=== PATIENT | female | born 1985 | race Caucasian/White ===

== ENCOUNTER 2017-02-02 12:01 | Emergency (ER) | payer BC, MEDICAID ==
[~2017-02-02] VITALS: Ht 157.5 cm; Wt 107.8 kg
[~2017-02-02 12:01] MED LIST: CALNTAB; PERC5TAB12 PO; PRENCAP10 PO
[2017-02-02 12:24] VITALS: BP 138/83; PULSE 97; RESP 16; TEMP 98.5; O2SAT 99
[2017-02-02] MEDS ORDERED: FERR325T18 PO (14:19)
--- NOTE | 2017-02-02 14:35 | PD ---
HPI Chief Complaint: GI Complaint Time Seen by Provider: 14:25 Travel History International Travel<30 days: No Contact w/Intl Traveler<30days: No Traveled to known affect area: No History of Present Illness HPI 31yo F with no significant PMH presents to the ED with c/o left lower back pain for 2 days. Pain is sharp, worst with movement and nonradiating. Also with nausea and NBNB vomiting. Denies any fever, IVDA, chest pain, sob, abdominal pain, focal weakness or numbness, trauma, fall, dysuria, hematuria, vaginal bleeding or discharge. LMP 12/25/16 and said her menstrual period is irregular. She check and her thinks he saw a faint line but she didnt. PFSH Past Medical History Asthma: Yes Anxiety: Yes Diminished Hearing: No Respiratory: Yes (ASTHMA CHILD) Immunizations Current: No ?: Unknown LMP: 12/25/16 Past Surgical History Surgical History: No Previous Surgery Social History Alcohol Use: No Tobacco Use: No Substance Use: No Allergies-Medications (Allergen,Severity, Reaction): Coded Allergies: No Known Allergies (Unverified Adverse Reaction, Unknown, 02/02/17) Reported Meds & Prescriptions Reported Meds & Active Scripts Active Reported Ferrous Sulfate 325 Mg (65 Mg Iron) Tablet 325 Mg PO DAILY Review of Systems Except as stated in HPI: all other systems reviewed are Neg Physical Exam Narrative GENERAL: 31yo F not in distress. SKIN: Focused skin assessment warm/dry. HEAD: Atraumatic. Normocephalic. EYES: Pupils equal and round. No scleral icterus. No injection or drainage. CARDIOVASCULAR: Regular rate and rhythm. No murmur appreciated. RESPIRATORY: No accessory muscle use. Clear to auscultation. Breath sounds equal bilaterally. GASTROINTESTINAL: Abdomen soft, non-tender, nondistended. No rebound tenderness or guarding. BACK: No midline thoracic or lumbar ttp. +CVA tenderness left. +TTP left paraspinal L4-L5. MUSCULOSKELETAL: No obvious deformities. No clubbing. No cyanosis. No edema. NEUROLOGICAL: Awake and alert. No obvious cranial nerve deficits. Motor grossly within normal limits. Normal speech. PSYCHIATRIC: Appropriate mood and affect; insight and judgment normal. Data Data Last Documented VS Vital Signs Date Time Temp Pulse Resp B/P (MAP) Pulse Ox O2 Delivery O2 Flow Rate FiO2 02/02/17 12:24 98.5 97 16 138/83 (101) 99 Orders Orders Complete Blood Count With Diff (02/02/17 14:30) Basic Metabolic Panel (Bmp) (02/02/17 14:30) Beta Hcg (Quant/Titer) (02/02/17 14:30) Urinalysis - C+S If Indicated (02/02/17 14:30) Ketorolac Inj (Toradol Inj) (02/02/17 16:45) Diazepam (Valium) (02/02/17 16:45) Labs Laboratory Tests Test 02/02/17 14:30 02/02/17 15:04 02/02/17 15:50 Urine Collection Type CLEAN CATCH Urine Color YELLOW Urine Turbidity CLEAR Urine pH 6.0 Urine Specific [place] 1.012 Urine Protein NEG mg/dL Urine Glucose (UA) NEG mg/dL Urine Ketones NEG mg/dL Urine Occult Blood TRACE Urine Nitrite NEG Urine Bilirubin NEG Urine Leukocyte Esterase NEG Urine RBC 0-3 /hpf Urine WBC 0-2 /hpf Urine Squamous Epithelial Cells 0-5 /hpf Microscopic Urinalysis Comment CULT NOT INDICATED Urine Collection Time 14:30 White Blood Count 9.0 TH/MM3 Red Blood Count 4.77 MIL/MM3 Hemoglobin 13.5 GM/DL Hematocrit 40.0 % Mean Corpuscular Volume 83.9 FL Mean Corpuscular Hemoglobin 28.2 PG Mean Corpuscular Hemoglobin Concent 33.6 % Red Cell Distribution Width 12.7 % Platelet Count 225 TH/MM3 Mean Platelet Volume 10.7 FL Neutrophils (%) (Auto) 55.6 % Lymphocytes (%) (Auto) 29.0 % Monocytes (%) (Auto) 7.4 % Eosinophils (%) (Auto) 4.3 % Basophils (%) (Auto) 3.7 % Neutrophils # (Auto) 5.0 TH/MM3 Lymphocytes # (Auto) 2.6 TH/MM3 Monocytes # (Auto) 0.7 TH/MM3 Eosinophils # (Auto) 0.4 TH/MM3 Basophils # (Auto) 0.3 TH/MM3 CBC Comment DIFF FINAL Differential Comment Blood Urea Nitrogen 8 MG/DL Creatinine 0.57 MG/DL Random Glucose 77 MG/DL Calcium Level 9.0 MG/DL Sodium Level 138 MEQ/L Potassium Level 4.0 MEQ/L Chloride Level 104 MEQ/L Carbon Dioxide Level 27.2 MEQ/L Anion Gap 7 MEQ/L Estimat Glomerular Filtration Rate 125 ML/MIN Human Chorionic Gonadotropin, Quant LESS THAN 1 MIU/ML MDM Medical Decision Making Medical Screen Exam Complete: Yes Emergency Medical Condition: Yes Differential Diagnosis Musculoskeletal pain vs. pyelonephritis vs. nephrolithiasis vs. Narrative Course 31yo F with lower back pain for 2 days. No red flags. Unsure about . Labs reviewed, no leukocytosis. negative. UA negative. I had ordered toradol and valium for the back pain after was negative. However, my nurse informed me that patient said she felt better and wanted to leave and I was with a critical patient so she had the patient sign out against medical advice. I did not have a chance to speak to the patient and she was not willing to wait for me to come speak to her after I stabilize the critical patient so she signed AMA without discussing with me. Diagnosis Primary Impression: Back pain Qualified Codes: M54.5 - Low back pain Patient Instructions: General Instructions Departure Forms: Tests/Procedures Additional Instructions: Please follow up with your primary care physician. Return to the ED if symptoms worsen. Med/Other Pt SpecificInfo: No Change to Meds Disposition: 07 AGAINST MEDICAL ADVICE Condition: Stable Sonja Reece DO Feb 02, 2017 14:35
[2017-02-02 15:07] LABS: BLOOD, URINE TRACE (NEG); GLUCOSE,URINE NEG (NEG); KETONE, URINE NEG (NEG); NITRITE,URINE NEG (NEG)
[2017-02-02 15:18] LABS: COMMENT (UR) CULT NOT INDICATED; CULTURE IF INDICATED CULT NOT INDICATED; METHOD OF COLLECTION CLEAN CATCH; RBC, URINE 0-3 /hpf (0-3); SQUAMOUS EPITHELIAL CELL URINE 0-5 /hpf (0-5); URINE COLOR YELLOW (YELLW/STRAW); WBC, URINE 0-2 /hpf (0-5)
[2017-02-02 15:26] LABS: BASOPHIL # 0.3 TH/MM3 (0-0.2); BASOPHIL % 3.7 % (0.0-2.0); EOSINOPHIL # 0.4 TH/MM3 (0-0.4); EOSINOPHIL % 4.3 % (0.0-4.0); HEMO FLAGS DIFF FINAL; LYMPHOCYTE # 2.6 TH/MM3 (1.0-4.8); MEAN CELL VOLUME 83.9 FL (80.0-100.0); MEAN CORPUSCULAR HEMOGLOBIN 28.2 PG (27.0-34.0); MEAN CORPUSCULAR HGB CONC 33.6 % (32.0-36.0); MONO % 7.4 % (0.0-8.0); NEUT % 55.6 % (16.0-70.0); PLATELET COUNT 225 TH/MM3 (150-450); RED BLOOD COUNT 4.77 MIL/MM3 (4.00-5.30); RED CELL DISTRIBUTION WIDTH 12.7 % (11.6-17.2)
[2017-02-02 16:26] LABS: CHLORIDE 104 MEQ/L (98-107); SODIUM (NA) 138 MEQ/L (136-145)
[2017-02-02 16:30] LABS: ANION GAP 7 MEQ/L (5-15); BICARBONATE 27.2 MEQ/L (21.0-32.0); BLOOD UREA NITROGEN 8 MG/DL (7-18)
[2017-02-02 16:33] LABS: GLOMERULAR FILTRATION RATE 125 ML/MIN (>89)
[2017-02-02 16:38] LABS: BETA HCG QUANT LESS THAN 1 MIU/ML (0-5)
[2017-02-02] MEDS ORDERED: DIAZEPAM 5 MG TAB PO ONE (16:45)
[2017-02-02] MEDS ORDERED: KETOROLAC TROMETHAMINE 60 MG/2 ML (IM) VIAL IM ONE (16:45)
== END 2017-02-02 17:31 | disposition left against medical advice (07) ==
LOC: PHED 12:01
DX: M54.5 Low back pain (principal); R11.2 Nausea with vomiting, unspecified; Z87.09 Personal history of other diseases of the respiratory system; Z86.59 Personal history of other mental and behavioral disorders; Z53.29 Procedure and treatment not carried out because of patient's decision for other reasons
CPT/HCPCS: 80048; 81001; 84702; 85025; 99283